=== PATIENT | male | born 1995 | race Caucasian/White ===

== ENCOUNTER → 2016-06-27 | Outpatient (CLI) | payer BC, OTHER | END | disposition home or self-care (01) | LOC: C.RDSM 14:38 | PROVIDERS: ATTEND Physical Medicine & Rehabilitation Sports Medicine | DX: M25.561 Pain in right knee (principal); M25.562 Pain in left knee ==

== ENCOUNTER → 2016-07-02 | Outpatient (CLI) | payer BC, OTHER ==
--- NOTE | 2016-07-02 18:53 | DIAGNOSTIC IMAGING REPORT ---
MRI OF THE RIGHT KNEE WITHOUT CONTRAST CLINICAL HISTORY: Persistent right knee pain. Previous right knee surgeries. COMPARISON STUDY: MRI of the right knee February 08, 2013 and knee radiographs June 27, 2016. TECHNIQUE: Utilizing a 1.5 Nikky magnet and dedicated coil, multiplanar, multiecho imaging of the right knee was performed without intravenous or intraarticular contrast. FINDINGS: Alignment of the right knee is anatomic. There is no knee joint effusion. A 2.4 cm multiloculated cystic abnormality along the posterior aspect of the medial right femur likely reflects a portion of a popliteal cyst. A ganglion cyst is considered less likely. The extensor mechanism is intact. The cruciate and collateral ligaments are intact. There is no medial meniscal tear. There body and anterior horn of the lateral meniscus are diminutive with oblique signal through the posterior horn of the lateral meniscus. A lateral meniscal tear was shown on exam of February 08, 2013. The findings on this exam could reflect an old tear or postsurgical change. There is moderate to severe chondrosis within the lateral compartment which has slightly progressed since exam February 08, 2013. Subchondral signal abnormality is noted. There is mild chondrosis within the medial and patellofemoral compartments. IMPRESSION: 1. Mild progression of moderate to severe chondrosis within the lateral compartment since MRI of February 08, 2013. 2. Intact cruciate and collateral ligaments. 3. Diminutive lateral meniscus with linear abnormal signal which extends to articular surface. This is likely postsurgical or reflect an old meniscal tear. Electronically signed by: Lauro Tirado M.D. 07/02/2016 6:51 PM Dictated Date/Time: 07/02/2016 4:07 PM
== END | disposition home or self-care (01) ==
LOC: C.MRI 15:03
PROVIDERS: ATTEND Physician Assistant
DX: M25.561 Pain in right knee (principal)

== ENCOUNTER → 2016-09-09 | Day surgery (SDC) | payer BC, OTHER ==
[2016-09-08 13:20] VITALS: Ht 185.4 cm; Wt 125.0 kg
[~2016-09-09] VITALS: Ht 185.4 cm; Wt 125.0 kg
[~2016-09-09] MED LIST: ATROPINE SULFATE 0.1 MG/ML 5ML SYR IV PRN; BUPIVACAINE/EPINEPHRINE 0.25% 1:200,000 30 ML VIAL ONE; CEFAZOLIN 2000 MG/60 ML D5W IV SCH; DEXAMETHASONE SOD INJ 4 MG/ML VIAL ONE; EpHEDrine SULFATE INJ 50 MG/ML AMP IV PRN; EpINEphrine HCL INJ 1 MG/ML 5ML SYRINGE ONE; FENTANYL CITRATE INJ 50 MCG/1 ML 2 ML VIAL ONE; HYDROmorphone INJ 1 MG/ML SYR ONE; LACTATED RINGER'S 1000ML 1,000 ML IV SCH; LEVOFLOXACIN 500 MG TAB PO SCH; LIDOCAINE HCL 2% 2 ML VIAL (20MG/ML) ONE; MIDAZOLAM HCL 1 MG/ML 2ML VIAL ONE; MoRPHine SULFATE 4 MG/ML 1 ML CARP\\VIAL IV PRN; ONDANSETRON INJ 2 MG/ML 2 ML VIAL IV PRN; ONDANSETRON INJ 2 MG/ML 2 ML VIAL ONE; OXYCODONE/ACETAMINOPHEN 5-325 TAB PO PRN; PATIENT'S HEIGHT AND/OR WEIGHT NEEDED SCH; PROPOFOL IV EMULSION 10 MG/ML 20 ML VIAL IV ONE; SCOPOLAMINE 1.5 MG TDSY TD ONE; SODIUM CHLORIDE 0.9% 1000ML 1,000 ML IV SCH
--- NOTE | 2016-09-09 08:28 | History & Physical Bridge Note ---
H&P Re-Evaluation Bridge Note: I have examined the patient, reviewed the History & Physical and in the interval since the performance of the History & Physical I have noted the following changes of clinical significance: No changes noted
--- NOTE | 2016-09-09 08:30 | Discharge Instructions ---
Discharge Instructions Date of Service Sep 09, 2016. Visit Reason for Visit: Right Knee Valgus Osteoarthritis Discharge Discharge Diagnosis / Problem: same Discharge Goals Goal(s): Decrease discomfort, Improve function Medications Stopped Medications Name(s): na Restart Stopped Medication(s): use scripts as directed Activity Recommendations Activity Limitations: as noted below Lifting Limitations: until after follow-up appointment Exercise/Sports Limitations: until after follow-up appointment May Resume Sexual Activity: when tolerated Shower/Bathe: keep incision dry Driving or Machine Use: Weightbearing Status: Right non-weightbearing Anesthesia . Post Anesthesia Instructions: If you have had General Anesthesia or IV Sedation: * Do not drive today. * Resume driving when surgeon permits. * Do not make important decisions or sign legal documents today. * Call surgeon for: 1. Temperature elevations greater than 101 degrees F. 2. Uncontrollable pain. 3. Excessive bleeding. 4. Persistent nausea and vomiting. 5. Medication intolerance (nausea, vomiting or rash). * For nausea and vomiting use only clear liquids such as: tea, soda, bouillon until nausea subsides, then gradually increase diet as tolerated. * If you have any concerns or questions, call your surgeon's office. If physician is unavailable and it is an emergency, call 911 or go to the nearest emergency room. . Instructions / Follow-Up Instructions / Follow-Up DIET: * Resume previous diet. MEDICATIONS: * Please take your prescriptions as instructed at your pre-op appointment and/ or see medication discharge instructions listed above. * If concerns develop, call your physician's office at . SPECIAL CARE INSTRUCTIONS: * Ice/Elevate as instructed. * Keep dressing clean, dry, intact. * Your surgical extremity may be discolored due to prepping agents used on the skin. A bluish-green tint is a normal variant and should not cause alarm. Call your doctor at [phone] if: * Temperature above 101 degrees * Pain not relieved by pain medicine ordered * There is increased drainage or redness from any incision * You have any unanswered questions, problems or concerns. FOLLOW UP VISIT: * If not already scheduled, please call the office at to schedule a follow-up appointment. Diet Recommendations Recommended Home Diet: resume previous diet Procedures Procedures Performed: DFVO Pending Studies Studies pending at discharge: no Medical Emergencies . Who to Call and When: Medical Emergencies: If at any time you feel your situation is an emergency, please call 911 immediately. . Non-Emergent Contact Non-Emergency issues call your: Specialist Call Non-Emergent contact if: temperature is above 101.5 . . "Provider Documentation" section prepared by Jim Maynard. .
[2016-09-09] MEDS: ROPIVACAINE 5MG/ML 30 ML 150 MG, BUPIVACAINE/EPINEPHR 0.5% MPF 30 ML, KETAMINE HCL INJ ... INFIL SCH ×10 (12:56→13:18)
--- NOTE | 2016-09-09 13:23 | [facility] Post Operative Brief Note ---
Immediate Operative Summary Operative Date Sep 09, 2016. Pre-Operative Diagnosis Right Knee Valgus Osteoarthritis Post-Operative Diagnosis Same Procedure(s) Performed Right Knee Arthroscopic Debridement With Open Distal Femur Varus Osteotomy, Microfracture Surgeon Dr Maynard Customer Advisor Specialist Surgeon(s) Shira Reece PA-C Estimated Blood Loss 200ML Findings LATERAL DISEASE COMPARTMENT Fluids (cc crystalloids) 1400cc Specimens None Drains none Anesthesia LMA/block Complication(s) None Disposition Recovery Room / PACU
[2016-09-09] MEDS: FENTANYL CITRATE INJ 50 MCG/1 ML 2 ML VIAL IV PRN ×2 (14:00→14:07)
--- NOTE | 2016-09-09 14:03 | OPERATIVE REPORT ---
DATE OF OPERATION: 09/09/2016 PREOPERATIVE DIAGNOSIS: Lateral compartment osteoarthritis with valgus alignment. POSTOPERATIVE DIAGNOSIS: Same. OPERATION PERFORMED: 1. Arthroscopy right knee with debridement lateral femoral condyle. 2. Open distal femoral varus osteotomy with internal fixation and bone grafting. SURGEON: Dr. Maynard. TOWER FOREMAN: Dr. Vitaliy Muniz. SECOND TOWER FOREMAN: Dragan Abebe PA-C. 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 At this point in time he knows he has no other option and wants to proceed with surgery despite there are no guarantees. Problems could include infection, nonunion, malunion, leg length shortening, hardware problems, nerve or artery injury. Despite all this, he wants to proceed. OPERATION AND FINDINGS: OPERATION: The patient appropriately identified, site verified, consent verified, 2 grams of Ancef confirmed as being given. The right lower extremity was prepped and draped in usual routine fashion. Inframedial and inferolateral portals were then made and knee inspected. The medial compartment was healthy. The patellofemoral joint was healthy. The ACL and PCL were healthy. The lateral compartment had a subtotal lateral meniscectomy grade 3 changes of the articular surface. There were some minor floaters that were removed. The area of microfracture had healed with fibrocartilage. Once this was done, the distal femur was then approached through a lateral incision. He was quite large, required a very significant incision. Full thickness flaps raised, the IT band split two-thirds and one-third, one-third posterior. The vastus lateralis lifted off the IT band everything protected. Subperiosteal dissection carried out. Once this was done, a guide pin was passed. Appropriate site for an osteotomy and then osteotomy partly with power and the rest of the way with hand leaving a good medial bridge. This was then springy, it was sprung open without fracturing the femur and a 10 mm plate, removed the rebecca line from the lateral compartment to just off the inner surface of the central area of the eminence. Good correction was obtained. Plate was then applied. It was a 10-degree 10-hole plate with 3 cancellous screws distally bearing in length up to 50 mm and proximally with 4 screws varying in length from 24 to 50 mm. Excellent purchase was obtained in all screws. The wound was then irrigated and then the bone plug was placed in the distal femoral varus osteotomy with some plasma platelet rich gel and then the wound closed with #1 Vicryl, 2-0 Vicryl and stainless steel clips. Appropriate dressing applied. The patient returned to recovery room in satisfactory condition having tolerated the procedure well. Estimated blood loss was 200 mL. Crystalloid was 1400 mL. Deep venous thrombosis prophylaxis per protocol. He will be strict nonweightbearing for a minimum of 4 weeks. I attest to the content of the Intraoperative Record and any orders documented therein. Any exception s are noted below.
[2016-09-09 14:32] VITALS: TEMP 37.4
[2016-09-09 14:58] VITALS: BP 150/82; PULSE 58; O2SAT 95
--- NOTE | 2016-09-09 15:03 | Anesthesia Progress Nt - [facility] ---
Anesthesia Post Op Note Date & Time Sep 09, 2016 at 15:03 Vital Signs Pain Intensity: 4 Vital Signs Past 12 Hours Date Time Temp Pulse Resp B/P (MAP) Pulse Ox O2 Delivery O2 Flow Rate FiO2 09/09/16 14:58 58 16 150/82 (104) 95 Room Air 09/09/16 14:32 37.4 78 16 180/91 (120) 95 Room Air 09/09/16 14:24 37 09/09/16 14:21 144/79 (94) 09/09/16 14:20 59 20 09/09/16 14:20 60 20 96 09/09/16 14:17 Room Air 09/09/16 14:16 150/80 (99) 09/09/16 14:15 75 22 96 09/09/16 14:15 78 22 09/09/16 14:11 143/81 (95) 09/09/16 14:10 62 19 100 09/09/16 14:10 64 19 09/09/16 14:06 138/67 (92) 09/09/16 14:05 51 20 100 09/09/16 14:05 52 20 09/09/16 14:01 141/72 (96) 09/09/16 14:00 54 22 09/09/16 14:00 55 22 100 09/09/16 13:56 140/95 (106) 09/09/16 13:55 66 17 100 09/09/16 13:55 64 17 09/09/16 13:51 151/77 (105) 09/09/16 13:50 66 22 09/09/16 13:50 67 22 100 09/09/16 13:46 150/80 (110) 09/09/16 13:45 58 20 100 09/09/16 13:45 58 20 09/09/16 13:41 143/84 (103) 09/09/16 13:40 67 22 100 09/09/16 13:40 67 22 09/09/16 13:36 139/79 (102) 09/09/16 13:35 69 22 09/09/16 13:35 69 22 100 09/09/16 13:32 138/83 (103) 09/09/16 13:30 37 76 20 138/83 100 Diffusion Mask 5 09/09/16 10:37 48 18 99 09/09/16 10:37 47 17 10:36 139/65 09/09/17 10:36 139/65 09/09/17 10:32 52 55 99 17 10:32 53 17 10:32 52 55 99 17 10:32 53 17 10:31 141/71 13/17 10:31 141/71 09/09/17 10:27 53 19 99 1317 10:27 58 17 10:27 58 17 10:27 53 19 99 17 10:26 138/68 09/09/ 10:22 56 21 99 17 10:22 59 17 10:21 132/67 09/09/16 10:18 55 09/09/16 10:18 55 20 99 17 10:16 136/69 09/09/16 10:13 53 21 99 09/09/16 10:13 57 09/09/16 10:12 145/62 09/09/16 10:08 77 23 99 09/09/16 10:08 76 09/09/16 10:06 134/71 09/09/16 10:03 63 09/09/16 10:03 61 21 99 09/09/16 10:02 56 21 99 09/09/16 10:02 56 09/09/16 10:01 147/66 09/09/16 09:57 61 21 98 09/09/16 09:57 60 09/09/16 09:56 159/71 09/09/16 09:52 78 09/09/16 09:52 77 29 99 09/09/16 09:51 162/80 09/09/16 09:47 82 28 98 09/09/16 09:47 82 09/09/16 09:46 159/80 09/09/16 09:42 76 24 99 09/09/16 09:42 72 09/09/16 09:41 149/81 09/09/16 09:37 85 09/09/16 09:37 84 28 100 09/09/16 09:36 165/69 09/09/16 09:32 72 29 99 09/09/16 09:32 71 09/09/16 09:31 151/78 09/09/16 09:29 74 09/09/16 09:29 76 23 100 09/09/16 09:27 162/79 09/09/16 09:24 65 0 09/09/16 08:14 37.1 50 16 156/83 (107) 98 Room Air Notes Mental Status: alert / awake / arousable, participated in evaluation Pt Amnestic to Procedure: Yes Nausea / Vomiting: adequately controlled Pain: adequately controlled Airway Patency, RR, SpO2: stable & adequate BP & HR: stable & adequate Hydration State: stable & adequate Anesthetic Complications: no major complications apparent
--- NOTE | 2016-09-09 16:15 | OPERATIVE REPORT ---
DATE OF OPERATION: 09/09/2016 PREOPERATIVE DIAGNOSIS: Right knee lateral compartment osteoarthritis with valgus positioning. POSTOPERATIVE DIAGNOSIS: Right knee, same. PROCEDURES: Right knee arthroscopy, debridement, and open distal femur varus osteotomy. SURGEON: Jim Maynard MD RESEARCH PROFESSIONAL: Vitaliy Muniz MD SECOND COGENERATION OPERATOR: Dragan Abebe PA-C. HISTORY OF PRESENT ILLNESS: This 20-year-old white male presented to the office with complaints of lateral right knee pain. It was worse with activity. He had multiple previous knee arthroscopies with debridement and microfracture. At this point in time, he elected to proceed with more significant intervention in hopes of preventing further degenerative change. Informed written consent was obtained. Preoperative x-rays and MRI were obtained. OPERATION: The patient was administered a regional block and then taken to the operating room, where he was given general anesthetic. He was prepped and draped in the usual sterile fashion. Please see Dr. Maynard's operative report for specifics of the procedure. I was present for the entire case from initial patient positioning through final wound closure. Assistance was provided in patient positioning, arthroscopy, tissue retraction, hemostasis, hardware placement, and final wound closure. The patient was taken to the recovery room in satisfactory condition. I attest to the content of the Intraoperative Record and any orders documented therein. Any exception s are noted below.
== END | disposition home or self-care (01) ==
LOC: X.SURG 08:02
PROVIDERS: ATTEND Physical Medicine & Rehabilitation Sports Medicine
DX: M17.11 Unilateral primary osteoarthritis, right knee (principal)

== ENCOUNTER → 2016-10-27 | Outpatient (CLI) | payer BC, OTHER | END | disposition home or self-care (01) | LOC: C.RDSM 14:12 | PROVIDERS: ATTEND Physical Medicine & Rehabilitation Sports Medicine | DX: M21.061 Valgus deformity, not elsewhere classified, right knee (principal) ==

== ENCOUNTER → 2016-11-24 | Outpatient (CLI) | payer BC, OTHER | END | disposition home or self-care (01) | LOC: C.RDSM 14:23 | PROVIDERS: ATTEND Physical Medicine & Rehabilitation Sports Medicine | DX: M21.061 Valgus deformity, not elsewhere classified, right knee (principal) ==

== ENCOUNTER → 2017-01-05 | Outpatient (CLI) | payer BC, OTHER | END | disposition home or self-care (01) | LOC: C.RDSM 11:38 | PROVIDERS: ATTEND Physical Medicine & Rehabilitation Sports Medicine | DX: S83.209A Unspecified tear of unspecified meniscus, current injury, unspecified knee, initial encounter (principal); X58.XXXA Exposure to other specified factors, initial encounter ==

== ENCOUNTER → 2017-02-27 | Outpatient (CLI) | payer BC, OTHER | END | disposition home or self-care (01) | LOC: C.RDSM 08:00 | PROVIDERS: ATTEND Physical Medicine & Rehabilitation Sports Medicine | DX: M21.061 Valgus deformity, not elsewhere classified, right knee (principal); S89.90XA Unspecified injury of unspecified lower leg, initial encounter; X58.XXXA Exposure to other specified factors, initial encounter ==

== ENCOUNTER → 2017-03-03 | Outpatient (CLI) | payer BC, OTHER ==
--- NOTE | 2017-03-03 15:58 | DIAGNOSTIC IMAGING REPORT ---
PELVIS 3 VIEWS CLINICAL HISTORY: Left groin pain. FINDINGS: An AP standing view of the pelvis with standing views of the pelvis in left hip flexion and right hip flexion are obtained. No prior studies are available for comparison at the time of dictation. The skeletal structures are well mineralized. No fracture is seen. The joint spaces of the hips are well-maintained. The sacroiliac joints and pubic symphysis are normal. The overlying soft tissues are within normal limits. There is no bowel obstruction. IMPRESSION: Unremarkable radiographic assessment of the hips and pelvis. Electronically signed by: Marcos Siddiqui M.D. 03/03/2017 3:56 PM Dictated Date/Time: 03/03/2017 3:55 PM
== END | disposition home or self-care (01) ==
LOC: C.RDSM 15:33
PROVIDERS: ATTEND Internal Medicine
DX: R10.32 Left lower quadrant pain (principal)

== ENCOUNTER → 2017-08-04 | Outpatient (CLI) | payer BC, OTHER ==
--- NOTE | 2017-08-04 11:23 | DIAGNOSTIC IMAGING REPORT ---
LUMBAR SPINE MIN 4 VIEWS HISTORY: 21 years-old Male LOW BACK PAIN AND RIGHT KNEE PAIN acute low back pain COMPARISON: None available TECHNIQUE: 5 views of the lumbar spine FINDINGS: No acute fracture, subluxation or significant degenerative changes. 5 lumbar type nonrib-bearing vertebral segments are present. There are remote appearing pars defects at L5 with 7 mm anterolisthesis L5 on S1. Mild intervertebral disc space narrowing at L5-S1. IMPRESSION: 1. No acute fracture or subluxation. 2. Remote appearing bilateral pars defects at L5 with 7 mm anterolisthesis L5 on S1. The above report was generated using voice recognition software. It may contain grammatical, syntax or spelling errors. Electronically signed by: Porfirio Solis M.D. 08/04/2017 11:22 AM Dictated Date/Time: 08/04/2017 11:19 AM
--- NOTE | 2017-08-04 11:30 | DIAGNOSTIC IMAGING REPORT ---
RIGHT KNEE 4 VIEWS HISTORY: LOW BACK PAIN AND RIGHT KNEE PAIN COMPARISON: Right knee 02/27/2017. FINDINGS: No acute fracture or dislocation within the right knee. No significant knee effusion. Mild cartilage space narrowing and marginal osteophytes at the lateral femorotibial and medial patellofemoral compartments consistent with osteoarthritis. This is similar to the prior study. Complete healing of the distal femoral osteotomy. The hardware appears intact. Questionable irregularity seen at the central weightbearing portion of the lateral femoral condyle. This is only seen on the tunnel view. IMPRESSION: 1. Complete healing of the distal femoral osteotomy. The hardware appears intact. 2. No change in the mild osteoarthritis at the patellofemoral and lateral femorotibial compartments. 3. There appears to be a small focal area of cortical irregularity at the lateral femoral condyle. This raises the possibility of an osteochondral defect. Consider right knee MRI or CT for confirmation. Electronically signed by: Mario Hines M.D. 08/04/2017 11:28 AM Dictated Date/Time: 08/04/2017 11:19 AM
== END | disposition home or self-care (01) ==
LOC: C.RDSM 11:02
PROVIDERS: ATTEND Internal Medicine
DX: R10.30 Lower abdominal pain, unspecified (principal); Z02.5 Encounter for examination for participation in sport